=== PATIENT | male | born 1965 | race Caucasian/White ===

== ENCOUNTER 2017-11-01 13:41 | Emergency (ER) | payer OTHER ==
[2017-11-01 13:43] VITALS: BP 175/91; PULSE 96; RESP 20; TEMP 98.1; O2SAT 98
[2017-11-01] MEDS ORDERED: TAMS0.4C4 PO (13:56)
[2017-11-01] MEDS ORDERED: SIMV40TA PO (13:56)
[2017-11-01] MEDS ORDERED: JANU50TA8 PO (13:56)
--- NOTE | 2017-11-01 14:27 | PD ---
HPI Chief Complaint: Respiratory Symptoms Time Seen by Provider: 14:23 Travel History International Travel<30 days: No Contact w/Intl Traveler<30days: No Traveled to known affect area: No History of Present Illness HPI This 52-year-old male says he is feeling well since last Wednesday. 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 He is expecting a pool pump and apparently there was good chlorine and possibly muriatic leak. He had a very strong waft of fumes which caused him to buckle at the time. He had a lot of pain in his throat and mucous membranes. He has not felt very well since then. He has had occasional cough and some achiness. He coughed up some brown material earlier. He has had a lot of drainage from the sinus. He does not smoke. He had a little bit of shortness of breath with exertion. He feels like he is getting better but he was supposed to go back to work today and was aching. He has not had fever or chills PFSH Past Medical History High Cholesterol: Yes Diabetes: Yes Patient Takes Glucophage: No Past Surgical History Abdominal Surgery: Yes (HERNIA) Social History Alcohol Use: No Tobacco Use: No Substance Use: No Allergies-Medications (Allergen,Severity, Reaction): Coded Allergies: No Known Drug Allergies (Verified Allergy, Unknown, 11/01/17) Reported Meds & Prescriptions Reported Meds & Active Scripts Active Reported Tamsulosin (Tamsulosin HCl) 0.4 Mg Cap 0.4 Mg PO HS Simvastatin 40 Mg Tab 40 Mg PO HS Janumet (Sitagliptin-Metformin) 50-1,000 Mg Tab Unknown Dose PO BID Review of Systems Except as stated in HPI: all other systems reviewed are Neg General / Constitutional: No: Fever, Chills Eyes: No: Diploplia, Blurred Vision HENT: Positive: Rhinitis Cardiovascular: No: Chest Pain or Discomfort, Palpitations Respiratory: Positive: Cough, Wheezing Gastrointestinal: No: Nausea, Vomiting Genitourinary: No: Frequency Musculoskeletal: Positive: Myalgias Skin: No Rash Psychiatric: No: Anxiety, Depression Hematologic/Lymphatic: No: Easy Bruising Physical Exam Narrative GENERAL well-developed male SKIN: Focused skin assessment warm/dry. HEAD: Atraumatic. Normocephalic. EYES: Pupils equal and round. No scleral icterus. No injection or drainage. ENT: No nasal bleeding or discharge. Mucous membranes pink and moist. NECK: Trachea midline. No JVD. CARDIOVASCULAR: Regular rate and rhythm. No murmur appreciated. RESPIRATORY: No accessory muscle use. Clear to auscultation. Breath sounds equal bilaterally. GASTROINTESTINAL: Abdomen soft, non-tender, nondistended. Hepatic and splenic margins not palpable. MUSCULOSKELETAL: No obvious deformities. No clubbing. No cyanosis. No edema. NEUROLOGICAL: Awake and alert. No obvious cranial nerve deficits. Motor grossly within normal limits. Normal speech. PSYCHIATRIC: Appropriate mood and affect; insight and judgment normal. Data Data Last Documented VS Vital Signs Date Time Temp Pulse Resp B/P (MAP) Pulse Ox O2 Delivery O2 Flow Rate FiO2 11/01/17 13:43 98.1 96 20 175/91 (119) 98 MDM Medical Decision Making Medical Screen Exam Complete: Yes Emergency Medical Condition: Yes Medical Record Reviewed: Yes Differential Diagnosis Differential includes pneumonia, bronchitis, chemical irritation of the airway Narrative Course Patient appears well at this time. He appears to be improving though he does still have some residual symptoms. He should be off work another couple of days. I do not think antibiotics would be beneficial. Diagnosis Primary Impression: Bronchitis due to chemical Departure Forms: Tests/Procedures, Work Release Enter return to work date: Nov 03, 2017 Disposition: 01 DISCHARGE HOME Condition: Stable Robert Desai MD Nov 01, 2017 14:27
== END 2017-11-01 15:02 | disposition home or self-care (01) ==
LOC: PHED 13:41
DX: J68.0 Bronchitis and pneumonitis due to chemicals, gases, fumes and vapors (principal); E78.00 Pure hypercholesterolemia, unspecified; E11.9 Type 2 diabetes mellitus without complications; Z79.899 Other long term (current) drug therapy
CPT/HCPCS: 99281